=== PATIENT | female | born 1995 | race Caucasian/White ===

== ENCOUNTER → 2017-01-27 | Outpatient (CLI) | payer BC ==
[~2017-01-27] MED LIST: CEFD1CAP14 PO; CIPR-255 PO; FEXO1TAB49 PO; FLUC100T4 PO; SULF800T23 PO
== END | disposition home or self-care (01) ==
LOC: C.LABSPEC 17:36
PROVIDERS: ATTEND Urology
DX: R30.0 Dysuria (principal); N30.10 Interstitial cystitis (chronic) without hematuria

== ENCOUNTER → 2017-02-04 | Outpatient (CLI) | payer BC ==
[2017-02-06 13:40] LABS: CHLAMYDIA TRACH RNA*** NOT DETECTED (NOT DETECTED); GC (NEIS GONORRHOEAE)RNA** NOT DETECTED (NOT DETECTED)
== END | disposition home or self-care (01) ==
LOC: C.LAB 10:35
PROVIDERS: ATTEND Urology
DX: R30.0 Dysuria (principal); N30.10 Interstitial cystitis (chronic) without hematuria

== ENCOUNTER → 2017-02-17 | Outpatient (CLI) | payer BC ==
[~2017-02-17] MED LIST changes: -CIPR-255 PO
== END | disposition home or self-care (01) ==
LOC: C.LABBC 12:01
PROVIDERS: ATTEND Urology
DX: N30.10 Interstitial cystitis (chronic) without hematuria (principal); R30.0 Dysuria

== ENCOUNTER → 2017-08-02 | Outpatient (CLI) | payer BC ==
[2017-08-10 02:18] LABS: ANTICARDIOLIPID AB IGA <11 APL (< = 11); CANDIDA AB IgA 1.1; CANDIDA AB IgG 0.7; CANDIDA AB IgM 0.8; PARVOVIRUS IgM INDEX 0.3 (<0.9)
== END | disposition home or self-care (01) ==
LOC: C.LAB 13:59
PROVIDERS: ATTEND Family Medicine
DX: A69.20 Lyme disease, unspecified (principal); K90.9 Intestinal malabsorption, unspecified; J32.9 Chronic sinusitis, unspecified; K59.00 Constipation, unspecified; R06.00 Dyspnea, unspecified; M54.5 Low back pain; D89.89 Other specified disorders involving the immune mechanism, not elsewhere classified